=== PATIENT | female | born 1955 | race Caucasian/White ===

== ENCOUNTER 2025-03-03 13:59 | Inpatient (IN) | payer MEDICAID ==
[~2025-03-03] VITALS: Ht 162.6 cm; Wt 67.6 kg
[2025-03-03 14:02] VITALS: O2SAT 100
[2025-03-03 14:31] LABS: BASOPHILS % 0.3 % (0.0-2.0); EOSINOPHILS % 1.3 % (0.0-5.0); HEMATOCRIT. 34.5 % (36.0-48.0); HEMOGLOBIN. 11.4 g/dL (12.0-16.0); LYMPHOCYTES % 19.2 % (20.0-50.0); MEAN PLATELET VOLUME 7.8 fl (7.4-10.4); MONOCYTES % 9.7 % (2.0-8.0); NEUTROPHILS % 69.5 % (40.0-76.0); PLATELET 248 x1000/uL (130-400); RED BLOOD CELL COUNT 3.95 mill/uL (4.2-5.4); RED CELL DISTRIBUTION WIDTH 14.2 % (11.6-14.6)
[2025-03-03 14:42] LABS: CREATININE 1.1 mg/dL (0.6-1.0)
[2025-03-03 14:43] LABS: TROPONIN I HIGH SENSITIVITY 17 ng/L (3.0-34); UREA NITROGEN BLOOD 22 mg/dL (9-23)
[2025-03-03 14:44] LABS: ASPARTATE AMINOTRANSFERASE 17 IU/L (<34)
[2025-03-03 14:45] LABS: BILIRUBIN DIRECT < 0.1 mg/dL (<=3.0); BILIRUBIN TOTAL 0.4 mg/dL (0.1-1.0); INR 1.0; PROTEIN TOTAL 6.5 g/dL (6.0-8.3)
[2025-03-03 16:14] LABS: CLARITY URINE CLEAR (CLEAR); COLOR URINE YELLOW (YELLOW); GLUCOSE URINE NEGATIVE (NEGATIVE); KETONES URINE NEGATIVE (NEGATIVE); LEUKOCYTE ESTERASE URINE TRACE (NEGATIVE); NITRITE URINE NEGATIVE (NEGATIVE); OCCULT BLOOD URINE TRACE (NEGATIVE); PH URINE 6.0 (4.5-8.0); PROTEIN URINE NEGATIVE (NEGATIVE); SPECIFIC GRAVITY URINE 1.012 (1.005-1.030); UROBILINOGEN URINE 0.2 E.U./dL (0.2-1.0)
[2025-03-03] MEDS: POTASSIUM CHLORIDE 20MEQ TABLET SR PO ONE (16:15)
[2025-03-03] MEDS: SODIUM CHLORIDE 0.9% 1,000 ML IV ONE (16:15)
[2025-03-03 16:26] LABS: BACTERIA URINE TRACE; SQUAMOUS EPITHELIAL CELL URINE FEW /lpf (RARE/1+)
[2025-03-03] MEDS ORDERED: CLONIDINE 0.1MG TABLET PO PRN (17:15)
[2025-03-03] MEDS ORDERED: ACETAMINOPHEN 325MG TABLET PO PRN (17:15)
[2025-03-03] MEDS ORDERED: DIPHENHYDRAMINE 50MG/ML VIAL IV PRN (17:15)
[2025-03-03] MEDS ORDERED: ONDANSETRON HCL 4MG/2ML INJ IV PRN (17:15)
[2025-03-03] MEDS ORDERED: DOCUSATE SODIUM 100MG CAPSULE PO PRN (17:15)
[2025-03-03] MEDS ORDERED: MAGNESIUM/ALUMINUM HYDROXIDE/SIMETHICONE 30ML UDC PO PRN (17:15)
[2025-03-03] MEDS: SODIUM CHLORIDE 0.9% 1,000 ML IV SCH (17:45)
[2025-03-03 20:00] VITALS: BP 132/69; PULSE 64; RESP 19; TEMP 36.4; O2SAT 96
[2025-03-03 22:52] VITALS: BP 139/74; PULSE 76; RESP 18; TEMP 36.2512
[2025-03-04] VITALS: BP 128/76; PULSE 72; RESP 17; TEMP 36.3; O2SAT 97
[2025-03-04 00:34] LABS: TROPONIN I HIGH SENSITIVITY 28 ng/L (3.0-34)
[2025-03-04 04:00] VITALS: BP 136/70; PULSE 60; RESP 18; TEMP 36.7; O2SAT 97
[2025-03-04 07:27] LABS: BASOPHILS % 0.4 % (0.0-2.0); EOSINOPHILS % 2.6 % (0.0-5.0); HEMATOCRIT. 35.0 % (36.0-48.0); HEMOGLOBIN. 11.6 g/dL (12.0-16.0); LYMPHOCYTES % 33.5 % (20.0-50.0); MEAN PLATELET VOLUME 8.8 fl (7.4-10.4); MONOCYTES % 8.6 % (2.0-8.0); NEUTROPHILS % 54.9 % (40.0-76.0); PLATELET 237 x1000/uL (130-400); RED BLOOD CELL COUNT 4.02 mill/uL (4.2-5.4); RED CELL DISTRIBUTION WIDTH 14.2 % (11.6-14.6)
[2025-03-04 07:28] LABS: TROPONIN I HIGH SENSITIVITY 23 ng/L (3.0-34)
[2025-03-04 07:31] LABS: CREATININE 0.8 mg/dL (0.6-1.0)
[2025-03-04 07:32] LABS: TRIGLYCERIDE 68 mg/dL (0-150); UREA NITROGEN BLOOD 17 mg/dL (9-23)
[2025-03-04 07:33] LABS: LDL CHOLESTEROL 125 mg/dL (5-100)
[2025-03-04 08:00] VITALS: BP_SYST 135; BP_SYST 147; BP_DIAS 68; BP_DIAS 69; BP_DIAS 78; PULSE 71; RESP 18; TEMP 36.4; O2SAT 98
[2025-03-04] MEDS: ENOXAPARIN 40MG/0.4ML SYR SUBCUT SCH (10:13)
[2025-03-04 11:30] LABS: *AMPHETAMINES SCREEN URINE NEGATIVE (NEGATIVE); *BARBITURATES SCREEN URINE NEGATIVE (NEGATIVE); *BENZODIAZEPINES SCREEN URINE NEGATIVE (NEGATIVE); *COCAINE SCREEN URINE NEGATIVE (NEGATIVE); METHADONE URINE SCREEN NEGATIVE (NEGATIVE); OPIATES URINE SCREEN NEGATIVE (NEGATIVE)
[2025-03-04 11:31] LABS: CANNABINOID URINE SCREEN NEGATIVE (NEGATIVE); ECSTASY MDMA SCREEN URINE NEGATIVE (NEGATIVE); PHENCYCLIDINE URINE SCREEN NEGATIVE (NEGATIVE)
[2025-03-04 12:00] VITALS: BP 134/70; PULSE 72; RESP 18; TEMP 36.4; O2SAT 97
[2025-03-04 16:00] VITALS: BP 123/66; PULSE 65; RESP 16; TEMP 36.6; O2SAT 97
[2025-03-04 20:07] VITALS: BP 122/52; PULSE 73; RESP 19; TEMP 36.4; O2SAT 98
[2025-03-04] MEDS: METOPROLOL TARTRATE 25MG TABLET PO SCH (20:48)
[2025-03-04] MEDS: ACETAMINOPHEN 325MG TABLET PO PRN (23:36)
[2025-03-05] VITALS: BP 143/71; PULSE 63; RESP 19; TEMP 36.6; O2SAT 97
[2025-03-05 04:00] VITALS: BP 126/73; PULSE 78; RESP 18; TEMP 36.3; O2SAT 97
[2025-03-05 08:00] VITALS: BP_SYST 150; BP_SYST 157; BP_SYST 162; BP_DIAS 67; BP_DIAS 77; BP_DIAS 83; PULSE 64; RESP 18; TEMP 36.2; O2SAT 98
[2025-03-05 12:00] VITALS: BP 149/75; PULSE 61; RESP 18; TEMP 35.8; O2SAT 97
[2025-03-05] MEDS ORDERED: IOHEXOL-350 100 ML BOTTLE ONE (12:38)
[2025-03-05] MEDS: NITROGLYCERIN SPRAY/4.9GM CAN TL ONE (12:50)
[2025-03-05 16:00] VITALS: BP 103/52; PULSE 71; RESP 18; TEMP 35.9; O2SAT 98
[2025-03-05 19:33] VITALS: BP_SYST 112; BP_SYST 113; BP_SYST 115; BP_DIAS 62; BP_DIAS 63; BP_DIAS 68; PULSE 75; RESP 18; TEMP 36.2; O2SAT 98
[2025-03-05] MEDS: ATORVASTATIN CALCIUM 40MG TABLET PO SCH (20:36)
[2025-03-06] VITALS: BP 122/71; PULSE 65; RESP 18; TEMP 36.5; O2SAT 98
[2025-03-06 04:00] VITALS: BP 124/74; PULSE 62; RESP 18; TEMP 36.4; TEMP 36.6; O2SAT 98
[2025-03-06 08:00] VITALS: BP_SYST 114; BP_SYST 117; BP_SYST 119; BP_DIAS 61; BP_DIAS 65; BP_DIAS 66; PULSE 73; RESP 18; TEMP 36.3; O2SAT 97
[2025-03-06] MEDS: ASPIRIN 81MG EC TABLET PO SCH (09:39)
[2025-03-06] MEDS: LISINOPRIL 5MG TABLET PO SCH (09:39)
[2025-03-06] MEDS ORDERED: LIP40 PO (11:46)
[2025-03-06] MEDS ORDERED: ASPI-1406 PO (11:46)
[2025-03-06] MEDS ORDERED: LISI-186 PO (11:46)
[2025-03-06 12:00] VITALS: BP 125/74; PULSE 81; RESP 18; TEMP 37.1; O2SAT 97
[2025-03-06 13:08] VITALS: BP 125/74; PULSE 81; RESP 18; TEMP 98.7
== END 2025-03-06 15:00 | disposition home or self-care (01) | DRG 204 ==
LOC: ER 14:37 → EDBEDREQTM 15:53 → EDBEDREQ 15:53 → ENRESERV 17:16 → 7WST 17:56
PROVIDERS: ADMIT Family Medicine Adult Medicine; ATTEND Family Medicine Adult Medicine
DX: I95.1 Orthostatic hypotension (principal); R56.9 Unspecified convulsions; E78.5 Hyperlipidemia, unspecified; E87.6 Hypokalemia; I10 Essential (primary) hypertension; I25.10 Atherosclerotic heart disease of native coronary artery without angina pectoris; G89.29 Other chronic pain; R29.810 Facial weakness; K44.9 Diaphragmatic hernia without obstruction or gangrene
CPT/HCPCS: 36415; 70551; 71045; 75571; 80048; 80061; 80076; 80305; 81003; 83036; 83735; 83880; 84443; 84484; 85025; 93005; 93306; 93880; 93970; 96360; 99285; J1650; J7030; Q9967